=== PATIENT | male | born 1990 | race African-American/Black ===

== ENCOUNTER 2018-03-20 20:50 | Emergency (ER) | payer SELFPAY ==
[~2018-03-20] VITALS: Ht 177.8 cm; Wt 86.4 kg
[2018-03-20 20:50] VITALS: BP 161/104
[2018-03-20] MEDS ORDERED: NORCO 5/325MG TABLET (BULK FOR ED) PO ONE (21:30)
[2018-03-20] MEDS ORDERED: PENICILLIN V POTASSIUM 500 MG TAB PO ONE (21:30)
[2018-03-20] MEDS ORDERED: PENI500T PO (21:30)
[2018-03-20] MEDS ORDERED: NORCOTAB PO (21:30)
== END 2018-03-20 21:53 | disposition home or self-care (01) ==
LOC: M ED 20:50
DX: K05.219 Aggressive periodontitis, localized, unspecified severity (principal); K08.89 Other specified disorders of teeth and supporting structures

== ENCOUNTER 2018-08-31 04:05 | Emergency (ER) | payer SELFPAY ==
[~2018-08-31] VITALS: Ht 177.8 cm; Wt 88.6 kg
[~2018-08-31 04:05] MED LIST: HYDR-3715 PO; PENI500T PO
[2018-08-31] MEDS ORDERED: LIDOCAINE 1% MDV 20ML VIAL SC ONE (05:00)
[2018-08-31] MEDS ORDERED: ADACEL/BOOSTRIX VACCINE (DIPHTH/PERTUSS/ACELL/TETANUS)0.5ML SYR (90715) IM ONE (05:00)
[2018-08-31] MEDS ORDERED: NEOSPORIN OINT 0.9 GM PKT (FLOOR STOCK) TOP ONE (05:30)
[2018-08-31 05:33] VITALS: BP 128/89
== END 2018-08-31 05:35 | disposition home or self-care (01) ==
LOC: M ED 04:05
DX: S61.211A Laceration without foreign body of left index finger without damage to nail, initial encounter (principal); W26.0XXA Contact with knife, initial encounter; Y92.018 Other place in single-family (private) house as the place of occurrence of the external cause; F17.210 Nicotine dependence, cigarettes, uncomplicated

== ENCOUNTER 2020-04-01 21:31 | Emergency (ER) | payer OTHER, SELFPAY ==
[~2020-04-01] VITALS: Ht 177.8 cm; Wt 91.2 kg
--- OUTSIDE RECORDS SUMMARY | 2020-04-01 21:45 | CCD ---
Author Author [facility] Organization [facility] Address Unknown Phone Unavailable Support Name Relationship Address Phone UE Next Of Kin Unknown Unavailable ESTHER Sharon OFELIA Next Of Kin [address] [place], [place] [id number] Re-disclosure Warning The records that you are about to access may contain information from federally-assisted alcohol or drug abuse programs. If such information is present, then the following federally mandated warning applies: This information has been disclosed to you from records protected by federal confidentiality rules (42 CFR part 2). The federal rules prohibit you from making any further disclosure of this information unless further disclosure is expressly permitted by the written consent of the person to whom it pertains or as otherwise permitted by 42 CFR part 2. A general authorization for the release of medical or other information is NOT sufficient for this purpose. The Federal rules restrict any use of the information to criminally investigate or prosecute any alcohol or drug abuse patient.The records that you are about to access may contain highly sensitive health information, the redisclosure of which is protected by Article 27-F of the [facility] Public Health law. If you continue you may have access to information: Regarding HIV / AIDS; Provided by facilities licensed or operated by the [facility] Office of Mental Health; or Provided by the [facility] Office for People With Developmental Disabilities. If such information is present, then the following [facility] mandated warning applies: This information has been disclosed to you from confidential records which are protected by state law. State law prohibits you from making any further disclosure of this information without the specific written consent of the person to whom it pertains, or as otherwise permitted by law. Any unauthorized further disclosure in violation of state law may result in a fine or halfway sentence or both. A general authorization for the release of medical or other information is NOT sufficient authorization for further disc losure. Insurance Providers Payer name Policy type / Coverage type Policy ID Covered republican ID Covered republican's relationship to romo Policy Romo Plan Information SELF PAY ONLY [id number] SP [id number] SELF PAY UNAVAILABLE SP UNAVAILA [facility] MEDICAID [id number] SP [id number]
--- OUTSIDE RECORDS SUMMARY | 2020-04-01 23:14 | CCD ---
Author Author [facility] Organization [facility] Address Unknown Phone Unavailable Support Name Relationship Address Phone UE Next Of Kin Unknown Unavailable ESTHERSharon Next Of Kin [address] [place], [place] [id number] Re-disclosure Warning The records that you are [...] is protected by Article 27-F of the [facility] Public Health law. If you continue you may have access to information: Regarding HIV / AIDS; Provided by facilities licensed or operated by the [facility] Office of Mental Health; or Provided by the [facility] Office for People With Developmental Disabilities. If such information is present, then the following [facility] mandated warning applies: This information has been [...] law may result in a fine or mcc sentence or both. A general authorization for the release of medical or other information is NOT sufficient authorization for further disc losure. Insurance Providers Payer name Policy type / Coverage type Policy ID Covered libertarian ID Covered libertarian's relationship to romo Policy Romo Plan Information SELF PAY ONLY [id number] SP [id number] SELF PAY UNAVAILABLE SP UNAVAILA [facility] MEDICAID [id number] SP [id number]
[2020-04-01] MEDS ORDERED: MUPI2OI TOP (23:43)
[2020-04-01] MEDS ORDERED: MUPIROCIN 2% OINT 22 GM TUBE TOP ONE (23:45)
[2020-04-02 00:06] VITALS: BP 162/86
== END 2020-04-02 00:08 | disposition home or self-care (01) ==
LOC: M ED 21:31
DX: L01.00 Impetigo, unspecified (principal); F17.210 Nicotine dependence, cigarettes, uncomplicated; F12.20 Cannabis dependence, uncomplicated

== ENCOUNTER → 2020-06-23 | Outpatient (REF) | payer OTHER ==
[~2020-06-23] MED LIST changes: +MUPI2OI TOP
== END ==
LOC: M LAB REF 16:52
PROVIDERS: ATTEND Physician Assistant
DX: R21 Rash and other nonspecific skin eruption (principal)

== ENCOUNTER 2022-05-10 20:52 | Emergency (ER) | payer OTHER ==
[~2022-05-10] VITALS: Ht 175.3 cm; Wt 95.8 kg
[2022-05-10 21:48] LABS: BASO % 0.4 % (0.0-1.0); EOS # 0.1 10^3/uL (0.0-0.5); EOS % 1.2 % (0.0-3.0); HEMATOCRIT 42.8 % (42.0-52.0); HEMOGLOBIN 14.6 g/dl (13.5-17.5); LYMPH # 2.4 10^3/uL (1.5-5.0); LYMPH % 21.6 % (24.0-44.0); MEAN CORPUSCULAR HEMOGLOBIN 29.7 pg (27.0-33.0); MEAN CORPUSCULAR HGB CONC 34.1 g/dl (32.0-36.5); MONO # 0.9 10^3/uL (0.0-0.8); MONO % 7.9 % (2.0-8.0); NEUTROPHILS # 7.5 10^3/uL (1.5-8.5); NEUTROPHILS % 68.5 % (36.0-66.0); PLATELET COUNT, AUTOMATED 219 10^3/uL (150-450); RED BLOOD COUNT 4.92 10^6/uL (4.30-6.10); WHITE BLOOD COUNT 10.9 10^3/uL (4.0-10.0)
[2022-05-10 22:00] LABS: INR 0.82; PROTHROMBIN TIME 11.5 SECONDS (12.5-14.5)
[2022-05-10 22:17] LABS: LIPASE 23 U/L (12-53)
[2022-05-10 22:18] LABS: CK-MB VALUE MASS 1.8 NG/ML (<3.6)
[2022-05-10 22:20] LABS: CPK CREATINE PHOSPHOKINASE 380 U/L (46-171); MB/CK RELATIVE INDEX 0.47 (< OR =4)
[2022-05-10 22:21] LABS: FREE T4 1.02 NG/DL (0.89-1.76); THYROID STIMULATING HORMONE 0.811 uIU/ML (0.55-4.78)
[2022-05-10 22:34] LABS: ALKALINE PHOSPHATASE 60 U/L (46-116); ALT/SGPT 58 U/L (7.0-40); AST/SGOT 47 U/L (<34); BILIRUBIN,DIRECT 0.1 MG/DL (<0.4); BILIRUBIN,TOTAL 0.4 MG/DL (0.3-1.2); BLOOD UREA NITROGEN 17 MG/DL (9-23); CALCIUM LEVEL 9.3 MG/DL (8.5-10.1); CARBON DIOXIDE LEVEL 28 MMOL/L (20-31); CHLORIDE LEVEL 105 MMOL/L (98-107); CREATININE FOR GFR 1.17 MG/DL (0.70-1.30); GLOMERULAR FILTRATION RATE > 60.0 (>60); GLUCOSE, FASTING 95 MG/DL (60-100); POTASSIUM SERUM 4.1 MMOL/L (3.5-5.1); SODIUM LEVEL 138 MMOL/L (136-145); TOTAL PROTEIN 7.4 G/DL (5.7-8.2)
[2022-05-11] MEDS ORDERED: hydrALAZINE 20MG/ML 1ML VIAL IV STA (02:56)
[2022-05-11 03:20] VITALS: BP 146/87
[2022-05-11] MEDS ORDERED: amLODIPine 5 MG TAB PO ONE (03:40)
[2022-05-11] MEDS ORDERED: AMLO25TA PO (03:40)
== END 2022-05-11 04:18 | disposition home or self-care (01) ==
LOC: M ED 20:52
DX: I10 Essential (primary) hypertension (principal); R51.9 Headache, unspecified; F17.200 Nicotine dependence, unspecified, uncomplicated

== ENCOUNTER 2024-05-15 02:21 | Emergency (ER) | payer OTHER ==
[~2024-05-15 02:21] MED LIST changes: +AMLO25TA PO
[2024-05-15 02:29] VITALS: BP 183/114; TEMP 98.5; O2SAT 97
== END 2024-05-15 04:52 | disposition left against medical advice (07) ==
LOC: M ED 02:21
DX: Z53.21 Procedure and treatment not carried out due to patient leaving prior to being seen by health care provider (principal)